=== PATIENT | female | born 1965 | race Caucasian/White ===

== ENCOUNTER → 2016-08-25 | Outpatient (CLI) | payer OTHER ==
--- NOTE | 2016-08-25 20:43 | PN ---
DATE OF SERVICE: 08/25/2016 This patient is a 51-year-old lady who has been followed in the sleep center. She is here to discuss results of sleep study for complaints of significant excessive daytime sleepiness. We discussed results of the sleep study with the patient in detail. Diagnostic sleep study did not show significant respiratory abnormalities. Total apnea-hypopnea index 0.5 with lowest oxygen level 89%. Scoring was done with the 4% oxygen desaturation criteria for hypopneas. Multiple sleep latency test done on the following day consisted from 5 naps. Mean sleep latency was 19.5 minutes, which is in normal range. I discussed with the patient details of the sleep studies. She indicated that on the day when she had the test with the naps, she had some kind of anxiety, and she told about different things; and she thinks that this was the reason why she did not fall asleep as she usually does. MEDICATIONS: Qvar. PHYSICAL EXAMINATION: Patient in no distress. VITAL SIGNS: BP 103/71, HR 86, RR 16. Oxygen saturation at room air 100%. Weight 111 pounds. HEENT: PERRLA, EOMI. Evaluation of oropharynx showed tongue protrudes midline. Slightly close position of soft palate to posterior pharyngeal wall. NECK: Supple. No JVD. Thyroid is not palpable. LUNGS: Clear to percussion and to auscultation. Good air exchange. No wheezing or rhonchi. HEART: S1, S2 regular. No murmurs, gallops or rubs. ABDOMEN: Soft and nontender. Bowel sounds are present. No organomegaly appreciated. EXTREMITIES: No clubbing or cyanosis. KENNEL AIDE: Awake, alert, and oriented x3. Cranial nerves 2 to 7 intact. There is no fasciculation or atrophy noted. No focal deficits observed. IMPRESSION: 1. No significant respiratory abnormalities have been documented during the sleep study with 4% oxygen desaturation criteria for scoring hypopneas. 2. Multiple sleep latency test did not confirm excessive daytime sleepiness, but patient continues to have symptoms of excessive daytime sleepiness. [place] Sleepiness Scale today is 15. 3. Asthma. 4. Status post tonsillectomy. 5. History of headaches. 6. History of neck pain. PLAN: 1. Sleep hygiene with regular time in bed for at least 8 hours. 2. Precautions related to driving. No driving if feeling any sleepiness. 3. Consider evaluation for possibility of depression. 4. If patient continues to have symptoms of excessive daytime sleepiness, we may consider a repeat sleep test. Thank you very much for allowing me to participate in the management of your patient. Sincerely, Tre Hernandez MD, PhD, FAASM. Diplomat of [place] [employer], Sleep Medicine Board by [place], [place] [employer]
== END | disposition home or self-care (01) ==
LOC: SLEEP 16:10
PROVIDERS: ATTEND Internal Medicine
DX: R40.0 Somnolence (principal)

== ENCOUNTER 2018-01-24 09:14 | Day surgery (SDC) | payer OTHER ==
[2018-01-22 09:17] VITALS: BMI 20.7
[2018-01-24] MEDS ORDERED: LIDOCAINE 1% 20 ML VIAL (10MG/ML) FOR IV START INTRADERMA ONE (10:11)
[2018-01-24] MEDS: LACTATED RINGERS 1,000 ML IV SCH ×2 (10:12→10:30)
[2018-01-24 10:15] VITALS: RESP 16; TEMP 97.1
[2018-01-24] MEDS ORDERED: ONDANSETRON 4 MG/2 ML VIAL IVP ONE (10:23)
[2018-01-24] MEDS ORDERED: PROPOFOL 10 MG/ML 20 ML VIAL IV ONE (10:29)
[2018-01-24] MEDS ORDERED: LIDOCAINE 1% INJ 10MG/ML (20 ML MDV) ONE (10:29)
--- NOTE | 2018-01-24 10:45 | P.PCN ---
Date of Procedure: 01/24/18 Procedure(s) Performed: BRIEF HISTORY: Patient is a 52-year-old pleasant white female, scheduled for an elective colonoscopy as a part of screening for colorectal neoplasia. PROCEDURE PERFORMED: Colonoscopy. PREOPERATIVE DIAGNOSIS: Screening for colon cancer. IV sedation per Anesthesia. PROCEDURE: After informed consent was obtained, the patient, was brought into the endoscopy unit. IV sedation was administered by Anesthesia under continuous monitoring. Digital rectal examination was normal. Initially the Olympus CF- 160 flexible video colonoscope was then inserted in the rectum, gradually advanced into the cecum without any difficulty. Careful examination was performed as the scope was gradually being withdrawn. Ileocecal valve and the appendiceal orifice were visualized and appeared normal. Prep was excellent. Mucosa of the cecum, ascending colon, transverse colon, descending colon, sigmoid colon, and rectum appeared normal. Retroflexion was performed in the rectum and no lesions were seen. The patient tolerated the procedure well. IMPRESSION: Normal-appearing colon from rectum to cecum with no evidence of colorectal neoplasia. RECOMMENDATIONS: Findings of this examination were discussed with the patient as well as a family. She was advised to have a repeat screening colonoscopy in 10 years.
[2018-01-24 11:37] VITALS: BP 122/90; PULSE 59
== END 2018-01-24 11:45 | disposition home or self-care (01) ==
LOC: ORWHC2ENDO 09:14
PROVIDERS: ATTEND Internal Medicine Gastroenterology
DX: Z12.11 Encounter for screening for malignant neoplasm of colon (principal); I10 Essential (primary) hypertension; K21.9 Gastro-esophageal reflux disease without esophagitis; J45.909 Unspecified asthma, uncomplicated; Z79.51 Long term (current) use of inhaled steroids
CPT/HCPCS: 45378; J2405